=== PATIENT | female | born 1940 | race Caucasian/White ===

== ENCOUNTER 2017-04-28 08:00 | Outpatient (CLI) | payer MEDICARE | END 2017-04-28 08:01 | disposition home or self-care (01) | LOC: BICMAMMO 08:00 | PROVIDERS: ATTEND Physician Assistant | DX: Z13.820 Encounter for screening for osteoporosis (principal); M85.852 Other specified disorders of bone density and structure, left thigh; M85.851 Other specified disorders of bone density and structure, right thigh | CPT/HCPCS: 77080 ==

== ENCOUNTER 2017-06-21 09:29 | Outpatient (CLI) | payer MEDICARE | END 2017-06-21 09:30 | disposition home or self-care (01) | LOC: BICMAMMO 09:29 | PROVIDERS: ATTEND Physician Assistant | DX: Z12.31 Encounter for screening mammogram for malignant neoplasm of breast (principal) | CPT/HCPCS: 77063; 77067 ==

== ENCOUNTER 2017-07-14 21:47 | Emergency (ER) | payer MEDICARE ==
[2017-07-14] MEDS ORDERED: HYDROcodone/Acetaminophen 5/325 mg Tablet ONE (22:25)
--- NOTE | 2017-07-14 22:30 | RAD ---
LEFT ANKLE: 07/14/17 Three views. HISTORY: Ankle injury with pain. Mild soft tissue swelling. Mild degenerative change at the ankle. No evidence of acute fracture. IMPRESSION: No acute fracture identified. POS: [facility]
== END 2017-07-14 22:44 | disposition home or self-care (01) ==
LOC: ERS 21:47
DX: S93.402A Sprain of unspecified ligament of left ankle, initial encounter (principal); E78.5 Hyperlipidemia, unspecified; I10 Essential (primary) hypertension; Z79.899 Other long term (current) drug therapy; Z86.73 Personal history of transient ischemic attack (TIA), and cerebral infarction without residual deficits; X50.1XXA Overexertion from prolonged static or awkward postures, initial encounter

== ENCOUNTER 2017-11-16 12:10 | Outpatient (CLI) | payer MEDICARE | END 2017-11-16 12:11 | disposition home or self-care (01) | LOC: ULT 12:10 | PROVIDERS: ATTEND Physician Assistant | DX: R01.1 Cardiac murmur, unspecified (principal); I08.1 Rheumatic disorders of both mitral and tricuspid valves | CPT/HCPCS: 93306 ==

== ENCOUNTER 2020-05-23 13:37 | Outpatient (CLI) | payer MEDICARE ==
--- NOTE | 2020-05-23 14:19 | BD ---
EXAM: DEXA bone density examination HISTORY: 80-year-old postmenopausal female for screening COMPARISON: None FINDINGS: L1--bone mineral density 1.058 g/sq cm; T score 0.6 L2--bone mineral density 1.028 g/sq cm; T score 0.0 L3--bone mineral density 1.199 g/sq cm; T score 1.0 L4--bone mineral density 1.367 g/sq cm; T score 2.8 Total L1-L4--bone mineral density 1.155 g/sq cm; T score 1.0 Left femoral neck--bone mineral density0.608; T score -2.2 Total proximal left femur--bone mineral density 0.891; T score -0.4 IMPRESSION: Osteopenia. This patient has a 10 year WHO fracture risk of a major osteoporotic fracture of 17% and of a hip fracture of 5.1%.
--- NOTE | 2020-05-23 14:35 | MMO ---
Bilateral MAMMO Bilat Screen [facility]. CLINICAL HISTORY: Patient is 80 years old and is seen for screening. The patient has no family history of breast cancer. The patient has no personal history of cancer. VIEWS: The views performed were: bilateral craniocaudal with tomosynthesis and bilateral mediolateral oblique with tomosynthesis. FILMS COMPARED: The present examination has been compared to prior imaging studies performed at [facility] [place] on 09/10/2010, 10/16/2014, 01/08/2016 and 06/21/2017. This study has been interpreted with the assistance of computer-aided detection. MAMMOGRAM FINDINGS: There are scattered fibroglandular densities. There are benign appearing and vascular calcifications seen in both breasts. There are no suspicious masses, suspicious calcifications, or new areas of architectural distortion. IMPRESSION: THERE IS NO MAMMOGRAPHIC EVIDENCE OF MALIGNANCY. A ROUTINE FOLLOW-UP MAMMOGRAM IN 1 YEAR IS RECOMMENDED. THE RESULTS OF THIS EXAM WERE SENT TO THE PATIENT. ACR BI-RADS Category 2 - Benign finding MAMMOGRAPHY NOTE: 1. A negative mammogram report should not delay a biopsy if a dominant of clinically suspicious mass is present. 2. Approximately 10% to 15% of breast cancers are not detected by mammography. 3. Adenosis and dense breasts may obscure an underlying neoplasm. Reported by: ANTHONY LORENZO MD Electonically Signed: [id number]
== END 2020-05-23 13:38 | disposition home or self-care (01) ==
LOC: BICMAMMO 13:37
PROVIDERS: ATTEND Physician Assistant
DX: Z12.31 Encounter for screening mammogram for malignant neoplasm of breast (principal); M85.852 Other specified disorders of bone density and structure, left thigh
CPT/HCPCS: 77063; 77067; 77080

== ENCOUNTER 2024-10-31 12:43 | Outpatient (CLI) | payer MEDICARE | END 2024-10-31 12:44 | disposition home or self-care (01) | LOC: BICMAMMO 12:43 | PROVIDERS: ATTEND Internal Medicine Rheumatology | DX: M81.0 Age-related osteoporosis without current pathological fracture (principal); M85.851 Other specified disorders of bone density and structure, right thigh; M85.852 Other specified disorders of bone density and structure, left thigh | CPT/HCPCS: 77080 ==

== ENCOUNTER 2025-02-28 10:59 | Outpatient (CLI) | payer MEDICARE | END 2025-02-28 11:00 | disposition home or self-care (01) | LOC: BICRAD 10:59 | PROVIDERS: ATTEND Nurse Practitioner Family | DX: M25.562 Pain in left knee (principal); S82.035A Nondisplaced transverse fracture of left patella, initial encounter for closed fracture ==